=== PATIENT | male | born 1960 | race African-American/Black ===

== ENCOUNTER 2021-11-28 12:50 | Emergency (ER) | payer OTHER ==
[~2021-11-28] VITALS: Ht 167.6 cm; Wt 76.7 kg
--- NOTE | 2021-11-28 13:08 | NUR ---
Dr Marquez evaluated the patient.
--- NOTE | 2021-11-28 14:49 | NUR ---
Patient discharged to home in stable condition. Written and verbal after care instructions given. Patient verbalizes understanding of instructions. Stressed follow up or return to ER for worsening s/s.
[2021-11-28 15:03] VITALS: BP 142/73
== END 2021-11-28 15:03 | disposition home or self-care (01) ==
LOC: ER 12:50
DX: T65.893A Toxic effect of other specified substances, assault, initial encounter (principal); R20.8 Other disturbances of skin sensation; Y99.8 Other external cause status; Y08.89XA Assault by other specified means, initial encounter; Y92.89 Other specified places as the place of occurrence of the external cause; I10 Essential (primary) hypertension; F31.9 Bipolar disorder, unspecified; E11.9 Type 2 diabetes mellitus without complications
CPT/HCPCS: A4663